=== PATIENT | female | born 1985 | race African-American/Black ===

== ENCOUNTER 2018-11-20 19:24 | Emergency (ER) | payer OTHER ==
[~2018-11-20] VITALS: Ht 175.3 cm; Wt 135.0 kg
[2018-11-20] MEDS ORDERED: HALOPERIDOL LACTATE 5MG/ML VIAL IM STA (22:30)
[2018-11-20] MEDS ORDERED: LORAZEPAM 2MG/ML CPJ IM STA (22:30)
[2018-11-20 23:34] LABS: BASOPHILS % 0.3 % (0.0-2.0); EOSINOPHILS % 0.9 % (0.0-5.0); HEMOGLOBIN. 12.1 g/dL (12.0-16.0); LYMPHOCYTES % 23.6 % (20.0-50.0); MEAN CORPUSCULAR HEMOGLOBIN 27.9 pg (28.0-32.0); MEAN CORPUSCULAR VOLUME 85.3 fL (81.0-99.0); MEAN PLATELET VOLUME 8.4 fl (7.4-10.4); MONOCYTES % 5.6 % (2.0-8.0); NEUTROPHILS % 69.6 % (40.0-76.0); PLATELET 255 x1000/uL (130-400); RED BLOOD CELL COUNT 4.34 mill/uL (4.2-5.4); RED CELL DISTRIBUTION WIDTH 14.3 % (11.6-14.6)
[2018-11-20 23:37] LABS: CHLORIDE 109 mEq/L (98-107)
[2018-11-20 23:41] LABS: ETHANOL BLOOD < 10 mg/dL
[2018-11-21] MEDS ORDERED: POTASSIUM CHLORIDE 20MEQ TABLET SR PO ONE (00:30)
[2018-11-21 06:40] VITALS: BP 100/54
[2018-11-21] MEDS ORDERED: ZIPRASIDONE MESYLATE 20MG/VIAL IM ONE (08:00)
== END 2018-11-21 15:00 | disposition home or self-care (01) ==
LOC: ER 19:24
DX: E87.6 Hypokalemia (principal); R45.851 Suicidal ideations; F41.9 Anxiety disorder, unspecified; F32.9 Major depressive disorder, single episode, unspecified; F12.10 Cannabis abuse, uncomplicated
CPT/HCPCS: 36415; 80053; 80307; 80329; 85025; 87186; 96372; 99284; J1630; J2060; J3486; Z7610

== ENCOUNTER 2019-01-22 10:29 | Emergency (ER) | payer MEDICAID, OTHER ==
[~2019-01-22] VITALS: Ht 170.2 cm; Wt 82.0 kg
[2019-01-22 11:01] VITALS: BP 137/91
[2019-01-22] MEDS ORDERED: LORAZEPAM 1MG TABLET PO ONE (11:30)
[2019-01-22 11:42] LABS: CLARITY URINE TURBID (CLEAR); COLOR URINE DARK YELLOW (YELLOW); KETONES URINE TRACE (NEGATIVE); LEUKOCYTE ESTERASE URINE 3+ (NEGATIVE); NITRITE URINE NEGATIVE (NEGATIVE); OCCULT BLOOD URINE NEGATIVE (NEGATIVE); PROTEIN URINE 1+ (NEGATIVE); SPECIFIC GRAVITY URINE 1.024 (1.005-1.030)
[2019-01-22 11:59] LABS: *COCAINE SCREEN URINE NEGATIVE (NEGATIVE); METHADONE URINE SCREEN NEGATIVE (NEGATIVE); OPIATES URINE SCREEN NEGATIVE (NEGATIVE); PHENCYCLIDINE URINE SCREEN NEGATIVE (NEGATIVE)
[2019-01-22 12:00] LABS: *AMPHETAMINES SCREEN URINE NEGATIVE (NEGATIVE); *BARBITURATES SCREEN URINE NEGATIVE (NEGATIVE); *BENZODIAZEPINES SCREEN URINE NEGATIVE (NEGATIVE)
[2019-01-22 12:07] LABS: BASOPHILS % 0.8 % (0.0-2.0); EOSINOPHILS % 1.1 % (0.0-5.0); HEMATOCRIT. 39.3 % (36.0-48.0); HEMOGLOBIN. 13.2 g/dL (12.0-16.0); LYMPHOCYTES % 18.8 % (20.0-50.0); MEAN CORPUSCULAR HEMOGLOBIN 29.1 pg (28.0-32.0); MEAN CORPUSCULAR VOLUME 86.6 fL (81.0-99.0); MEAN PLATELET VOLUME 8.8 fl (7.4-10.4); MONOCYTES % 6.9 % (2.0-8.0); NEUTROPHILS % 72.4 % (40.0-76.0); PLATELET 234 x1000/uL (130-400); RED BLOOD CELL COUNT 4.53 mill/uL (4.2-5.4); RED CELL DISTRIBUTION WIDTH 15.9 % (11.6-14.6)
[2019-01-22 12:09] LABS: CHLORIDE 107 mEq/L (98-107)
[2019-01-22 12:14] LABS: CANNABINOID URINE SCREEN PRESUMTIVE POSITIVE (NEGATIVE)
[2019-01-22 12:14] LABS: ETHANOL BLOOD < 10 mg/dL; HCG SCREEN NEGATIVE
[2019-01-22] MEDS ORDERED: OLAN5TAB3 PO (13:01)
== END 2019-01-22 12:10 | disposition left against medical advice (07) ==
LOC: ER 10:29
DX: N39.0 Urinary tract infection, site not specified (principal); F41.9 Anxiety disorder, unspecified; F32.9 Major depressive disorder, single episode, unspecified; F12.10 Cannabis abuse, uncomplicated
CPT/HCPCS: 36415; 80305; 80307; 80320; 80329; 81025; 84703; 87077; 87186; 99284; G0480

== ENCOUNTER 2019-01-22 12:34 | Emergency (ER) | payer MEDICAID ==
[~2019-01-22] VITALS: Ht 160 cm; Wt 86.9 kg
[2019-01-22 12:58] VITALS: BP 127/80
[2019-01-22] MEDS ORDERED: OLAN5TAB3 PO (13:01)
== END 2019-01-22 19:04 | disposition left against medical advice (07) ==
LOC: ER 12:34
DX: Z53.21 Procedure and treatment not carried out due to patient leaving prior to being seen by health care provider (principal)

== ENCOUNTER 2019-04-25 03:48 | Emergency (ER) | payer MEDICAID ==
[~2019-04-25] VITALS: Ht 165.1 cm; Wt 75.0 kg
[~2019-04-25 03:48] MED LIST: OLAN5TAB3 PO
[2019-04-25 04:20] VITALS: BP 118/95
== END 2019-04-25 05:05 | disposition home or self-care (01) ==
LOC: ER 03:48
DX: F41.9 Anxiety disorder, unspecified (principal); R45.851 Suicidal ideations
CPT/HCPCS: 99284

== ENCOUNTER 2019-08-24 09:25 | Emergency (ER) | payer MEDICAID ==
[~2019-08-24] VITALS: Ht 167.6 cm; Wt 102.0 kg
[2019-08-24 12:40] LABS: *AMPHETAMINES SCREEN URINE NEGATIVE (NEGATIVE); *COCAINE SCREEN URINE NEGATIVE (NEGATIVE); METHADONE URINE SCREEN NEGATIVE (NEGATIVE)
[2019-08-24 12:42] LABS: *BARBITURATES SCREEN URINE NEGATIVE (NEGATIVE); CANNABINOID URINE SCREEN NEGATIVE (NEGATIVE); OPIATES URINE SCREEN NEGATIVE (NEGATIVE); PHENCYCLIDINE URINE SCREEN NEGATIVE (NEGATIVE)
[2019-08-24 12:43] LABS: *BENZODIAZEPINES SCREEN URINE NEGATIVE (NEGATIVE)
[2019-08-24 15:54] VITALS: BP 130/73
== END 2019-08-24 19:17 | disposition home or self-care (01) ==
LOC: ER 10:06
DX: F22 Delusional disorders (principal); F17.200 Nicotine dependence, unspecified, uncomplicated
CPT/HCPCS: 80305; 81025; 99283; 99406

== ENCOUNTER 2019-08-24 19:07 | Emergency (ER) | payer MEDICAID ==
[~2019-08-24] VITALS: Ht 162.6 cm; Wt 93.0 kg
[2019-08-24 19:28] VITALS: BP 120/77
[2019-08-24] MEDS ORDERED: IBUPROFEN 600MG TABLET PO ONE (23:15)
== END 2019-08-25 00:10 | disposition home or self-care (01) ==
LOC: ER 19:07
DX: R07.89 Other chest pain (principal); F32.9 Major depressive disorder, single episode, unspecified; F41.9 Anxiety disorder, unspecified
CPT/HCPCS: 71045; 93005; 99283

== ENCOUNTER 2019-08-25 06:43 | Emergency (ER) | payer MEDICAID ==
[~2019-08-25] VITALS: Ht 162.6 cm; Wt 95.0 kg
[2019-08-25] MEDS ORDERED: IBUPROFEN 400MG TABLET PO ONE (08:15)
[2019-08-25 08:50] VITALS: BP 101/70
== END 2019-08-25 09:12 | disposition home or self-care (01) ==
LOC: ER 06:52
DX: R07.89 Other chest pain (principal); F41.9 Anxiety disorder, unspecified; F32.9 Major depressive disorder, single episode, unspecified
CPT/HCPCS: 81025; 93005; 99283

== ENCOUNTER 2020-06-21 19:45 | Emergency (ER) | payer MEDICAID ==
[~2020-06-21] VITALS: Ht 165.1 cm; Wt 73.0 kg
[2020-06-21] MEDS ORDERED: LORAZEPAM 2MG/ML CPJ IM STA (20:40)
[2020-06-21] MEDS ORDERED: OLANZAPINE 10 MG/VIAL IM STA (20:40)
[2020-06-21 21:36] LABS: BASOPHILS % 0.6 % (0.0-2.0); EOSINOPHILS % 0.8 % (0.0-5.0); HEMATOCRIT. 34.3 % (36.0-48.0); HEMOGLOBIN. 11.6 g/dL (12.0-16.0); LYMPHOCYTES % 23.1 % (20.0-50.0); MEAN CORPUSCULAR HEMOGLOBIN 28.4 pg (28.0-32.0); MEAN CORPUSCULAR VOLUME 83.8 fL (81.0-99.0); MEAN PLATELET VOLUME 8.1 fl (7.4-10.4); MONOCYTES % 4.4 % (2.0-8.0); NEUTROPHILS % 71.1 % (40.0-76.0); PLATELET 260 x1000/uL (130-400); RED BLOOD CELL COUNT 4.09 mill/uL (4.2-5.4); RED CELL DISTRIBUTION WIDTH 14.6 % (11.6-14.6)
[2020-06-21 21:43] LABS: CHLORIDE 108 mEq/L (98-107)
[2020-06-21 21:47] LABS: ETHANOL BLOOD < 10 mg/dL
[2020-06-21 21:59] LABS: HCG SCREEN NEGATIVE
[2020-06-21] MEDS ORDERED: KCL 20MEQ/100ML PREMIX 100 ML IV ONE (23:30)
[2020-06-21] MEDS ORDERED: POTASSIUM CHLORIDE 20MEQ TABLET SR PO ONE (23:30)
[2020-06-22] MEDS ORDERED: ZIPRASIDONE HCL 20MG CAPSULE PO ONE (01:00)
[2020-06-22] MEDS ORDERED: POTASSIUM CHLORIDE 20MEQ TABLET SR PO NR (01:30)
[2020-06-22] MEDS ORDERED: LORAZEPAM 2MG/ML CPJ IM STA (01:53)
[2020-06-22] MEDS ORDERED: HALOPERIDOL LACTATE 5MG/ML VIAL IM ONE (02:00)
[2020-06-22] MEDS ORDERED: KCL 20MEQ/100ML PREMIX 100 ML IV ONE (02:45)
[2020-06-22 05:45] LABS: CHLORIDE 114 mEq/L (98-107)
[2020-06-22 06:17] LABS: CLARITY URINE CLEAR (CLEAR); COLOR URINE DARK YELLOW (YELLOW); KETONES URINE TRACE (NEGATIVE); LEUKOCYTE ESTERASE URINE NEGATIVE (NEGATIVE); NITRITE URINE NEGATIVE (NEGATIVE); OCCULT BLOOD URINE NEGATIVE (NEGATIVE); PROTEIN URINE NEGATIVE (NEGATIVE); SPECIFIC GRAVITY URINE 1.026 (1.005-1.030)
[2020-06-22 06:26] LABS: *BARBITURATES SCREEN URINE NEGATIVE (NEGATIVE); *COCAINE SCREEN URINE NEGATIVE (NEGATIVE); METHADONE URINE SCREEN NEGATIVE (NEGATIVE); OPIATES URINE SCREEN NEGATIVE (NEGATIVE); PHENCYCLIDINE URINE SCREEN NEGATIVE (NEGATIVE)
[2020-06-22 06:27] LABS: *BENZODIAZEPINES SCREEN URINE NEGATIVE (NEGATIVE)
[2020-06-22 06:30] LABS: *AMPHETAMINES SCREEN URINE PRESUMTIVE POSITIVE (NEGATIVE); CANNABINOID URINE SCREEN PRESUMTIVE POSITIVE (NEGATIVE)
[2020-06-22 14:26] VITALS: BP 138/77
== END 2020-06-22 15:02 | disposition home or self-care (01) ==
LOC: ER 19:45
DX: F23 Brief psychotic disorder (principal); E87.6 Hypokalemia; F41.9 Anxiety disorder, unspecified; Z98.890 Other specified postprocedural states
CPT/HCPCS: 36415; 80048; 80053; 80305; 80307; 80320; 80329; 81003; 83735; 84443; 84703; 85025; 93005; 96365; 96366; 96372; 99285; J1630; J2060; J3480; J3490; G0480

== ENCOUNTER 2020-07-25 18:47 | Emergency (ER) | payer MEDICAID ==
[~2020-07-25] VITALS: Ht 167.6 cm; Wt 118.0 kg
[2020-07-25] MEDS ORDERED: OLANZAPINE 5MG TABLET PO SCH (20:00)
[2020-07-25] MEDS ORDERED: OLANZAPINE 10 MG/VIAL IM ONE (20:00)
[2020-07-25 20:24] VITALS: BP 134/87
== END 2020-07-25 20:24 | disposition home or self-care (01) ==
LOC: ER 18:47
DX: F20.9 Schizophrenia, unspecified (principal); F31.9 Bipolar disorder, unspecified
CPT/HCPCS: 96372; 99283; J3490

== ENCOUNTER 2020-09-12 13:10 | Emergency (ER) | payer MEDICAID ==
[~2020-09-12] VITALS: Ht 167.6 cm; Wt 80.0 kg
[2020-09-12 13:18] VITALS: BP 148/74
[2020-09-12 18:33] LABS: HCG SCREEN NEGATIVE
== END 2020-09-12 19:19 | disposition home or self-care (01) ==
LOC: ER 13:10
DX: R11.0 Nausea (principal); Z32.02 Encounter for pregnancy test, result negative; I10 Essential (primary) hypertension
CPT/HCPCS: 81025; 84703; 99283

== ENCOUNTER 2021-08-20 08:48 | Emergency (ER) | payer MEDICAID ==
[~2021-08-20] VITALS: Ht 170.2 cm; Wt 78.0 kg
[2021-08-20] MEDS ORDERED: ACETAMINOPHEN 325MG TABLET PO ONE (09:30)
[2021-08-20] MEDS ORDERED: ACET-2708 MT (11:18)
[2021-08-20 12:22] VITALS: BP 126/73
== END 2021-08-20 12:22 | disposition home or self-care (01) ==
LOC: ER 08:48
DX: M24.851 Other specific joint derangements of right hip, not elsewhere classified (principal); M23.91 Unspecified internal derangement of right knee; I10 Essential (primary) hypertension; F32.A Depression, unspecified; F17.210 Nicotine dependence, cigarettes, uncomplicated; Y08.89XA Assault by other specified means, initial encounter; Y93.89 Activity, other specified; Y92.018 Other place in single-family (private) house as the place of occurrence of the external cause
CPT/HCPCS: 73502; 73560; 81025; 99284

== ENCOUNTER 2021-10-03 17:11 | Emergency (ER) | payer MEDICAID ==
[~2021-10-03] VITALS: Ht 165.1 cm; Wt 100.0 kg
[~2021-10-03 17:11] MED LIST changes: +ACET-2708 MT
[2021-10-03 17:33] VITALS: BP 127/79
[2021-10-03 20:09] LABS: CLARITY URINE CLEAR (CLEAR); COLOR URINE YELLOW (YELLOW); KETONES URINE NEGATIVE (NEGATIVE); LEUKOCYTE ESTERASE URINE NEGATIVE (NEGATIVE); NITRITE URINE NEGATIVE (NEGATIVE); OCCULT BLOOD URINE NEGATIVE (NEGATIVE); PROTEIN URINE TRACE (NEGATIVE); SPECIFIC GRAVITY URINE 1.037 (1.005-1.030); UROBILINOGEN URINE 0.2 E.U./dL (0.2-1.0)
[2021-10-03 20:46] LABS: BASOPHILS % 0.5 % (0.0-2.0); EOSINOPHILS % 0.9 % (0.0-5.0); HEMATOCRIT. 40.9 % (36.0-48.0); HEMOGLOBIN. 13.2 g/dL (12.0-16.0); MEAN CORPUSCULAR HEMOGLOBIN 28.4 pg (28.0-32.0); MEAN CORPUSCULAR VOLUME 88.3 fL (81.0-99.0); MEAN PLATELET VOLUME 8.3 fl (7.4-10.4); MONOCYTES % 2.9 % (2.0-8.0); NEUTROPHILS % 72.7 % (40.0-76.0); PLATELET 288 x1000/uL (130-400); RED BLOOD CELL COUNT 4.63 mill/uL (4.2-5.4); RED CELL DISTRIBUTION WIDTH 13.9 % (11.6-14.6)
[2021-10-03 20:48] LABS: CHLORIDE 108 mEq/L (98-107)
[2021-10-03 21:10] LABS: B-HCG QUANTITATIVE 12163 mIU/mL (<3)
== END 2021-10-03 21:54 | disposition home or self-care (01) ==
LOC: ER 17:22
DX: O26.891 Other specified pregnancy related conditions, first trimester (principal); R10.84 Generalized abdominal pain; O99.341 Other mental disorders complicating pregnancy, first trimester; O16.1 Unspecified maternal hypertension, first trimester; F31.9 Bipolar disorder, unspecified; Z3A.01 Less than 8 weeks gestation of pregnancy
CPT/HCPCS: 36415; 76801; 80053; 81003; 81025; 84702; 85025; 86850; 86900; 99284

== ENCOUNTER 2021-10-04 02:28 | Emergency (ER) | payer MEDICAID ==
[~2021-10-04] VITALS: Ht 167.6 cm; Wt 82.0 kg
[2021-10-04 02:43] VITALS: BP 147/76
[2021-10-04] MEDS ORDERED: ACETAMINOPHEN 325MG TABLET PO ONE (03:30)
[2021-10-05] MEDS ORDERED: CEPH500C2 MT (03:56)
== END 2021-10-04 03:52 | disposition home or self-care (01) ==
LOC: ER 02:28
DX: R10.9 Unspecified abdominal pain (principal)
CPT/HCPCS: 99282

== ENCOUNTER 2021-10-04 16:13 | Emergency (ER) | payer MEDICAID ==
[~2021-10-04] VITALS: Ht 154.9 cm; Wt 96.8 kg
[2021-10-04 16:25] VITALS: BP 141/119
[2021-10-04 19:48] LABS: BASOPHILS % 0.3 % (0.0-2.0); EOSINOPHILS % 1.4 % (0.0-5.0); HEMATOCRIT. 38.2 % (36.0-48.0); HEMOGLOBIN. 12.3 g/dL (12.0-16.0); LYMPHOCYTES % 22.5 % (20.0-50.0); MEAN CORPUSCULAR HEMOGLOBIN 28.1 pg (28.0-32.0); MEAN CORPUSCULAR VOLUME 87.5 fL (81.0-99.0); MEAN PLATELET VOLUME 8.2 fl (7.4-10.4); MONOCYTES % 4.7 % (2.0-8.0); NEUTROPHILS % 71.1 % (40.0-76.0); PLATELET 310 x1000/uL (130-400); RED BLOOD CELL COUNT 4.36 mill/uL (4.2-5.4); RED CELL DISTRIBUTION WIDTH 13.9 % (11.6-14.6)
[2021-10-04 19:55] LABS: CHLORIDE 107 mEq/L (98-107)
[2021-10-04 20:19] LABS: B-HCG QUANTITATIVE 12462 mIU/mL (<3)
[2021-10-05] MEDS ORDERED: CEPH500C2 MT (03:56)
== END 2021-10-04 21:14 | disposition home or self-care (01) ==
LOC: ER 16:13
DX: O26.891 Other specified pregnancy related conditions, first trimester (principal); F41.9 Anxiety disorder, unspecified; Z3A.01 Less than 8 weeks gestation of pregnancy
CPT/HCPCS: 36415; 80053; 84702; 85025; 86850; 86900; 93005; 99284

== ENCOUNTER 2021-10-05 01:05 | Emergency (ER) | payer MEDICAID ==
[~2021-10-05] VITALS: Ht 162.6 cm; Wt 96.8 kg
[2021-10-05 02:07] LABS: CLARITY URINE CLEAR (CLEAR); COLOR URINE YELLOW (YELLOW); KETONES URINE TRACE (NEGATIVE); LEUKOCYTE ESTERASE URINE TRACE (NEGATIVE); NITRITE URINE NEGATIVE (NEGATIVE); OCCULT BLOOD URINE NEGATIVE (NEGATIVE); PH URINE 5.5 (4.5-8.0); PROTEIN URINE NEGATIVE (NEGATIVE); SPECIFIC GRAVITY URINE 1.038 (1.005-1.030)
[2021-10-05 02:16] LABS: *AMPHETAMINES SCREEN URINE NEGATIVE (NEGATIVE); *BARBITURATES SCREEN URINE NEGATIVE (NEGATIVE); *BENZODIAZEPINES SCREEN URINE NEGATIVE (NEGATIVE); *COCAINE SCREEN URINE NEGATIVE (NEGATIVE); METHADONE URINE SCREEN NEGATIVE (NEGATIVE); OPIATES URINE SCREEN NEGATIVE (NEGATIVE); PHENCYCLIDINE URINE SCREEN NEGATIVE (NEGATIVE)
[2021-10-05 02:17] LABS: CANNABINOID URINE SCREEN NEGATIVE (NEGATIVE)
[2021-10-05] MEDS ORDERED: CEPH500C2 MT (03:56)
[2021-10-05 04:47] VITALS: BP 102/61
== END 2021-10-05 04:49 | disposition home or self-care (01) ==
LOC: ER 01:26
DX: O23.41 Unspecified infection of urinary tract in pregnancy, first trimester (principal); N39.0 Urinary tract infection, site not specified; O09.521 Supervision of elderly multigravida, first trimester; Z3A.01 Less than 8 weeks gestation of pregnancy
CPT/HCPCS: 80305; 81003; 81025; 99283

== ENCOUNTER 2021-11-24 04:10 | Emergency (ER) | payer MEDICAID ==
[~2021-11-24] VITALS: Ht 167.6 cm; Wt 114.0 kg
[~2021-11-24 04:10] MED LIST changes: +AMOX-424 MT; +CEPH500C2 MT; +HYDR-4001 MT
[2021-11-24 06:20] LABS: BASOPHILS % 0.4 % (0.0-2.0); EOSINOPHILS % 1.3 % (0.0-5.0); HEMATOCRIT. 34.3 % (36.0-48.0); HEMOGLOBIN. 11.5 g/dL (12.0-16.0); LYMPHOCYTES % 23.6 % (20.0-50.0); MEAN CORPUSCULAR VOLUME 86.1 fL (81.0-99.0); MEAN PLATELET VOLUME 8.4 fl (7.4-10.4); MONOCYTES % 4.6 % (2.0-8.0); NEUTROPHILS % 70.1 % (40.0-76.0); PLATELET 267 x1000/uL (130-400); RED BLOOD CELL COUNT 3.99 mill/uL (4.2-5.4); RED CELL DISTRIBUTION WIDTH 13.9 % (11.6-14.6)
[2021-11-24 06:37] LABS: CHLORIDE 111 mEq/L (98-107)
[2021-11-24 06:42] LABS: ETHANOL BLOOD < 10 mg/dL
[2021-11-24 14:45] VITALS: BP 110/70
== END 2021-11-24 15:29 | disposition home or self-care (01) ==
LOC: ER 05:00
DX: T74.21XA Adult sexual abuse, confirmed, initial encounter (principal); F31.9 Bipolar disorder, unspecified; F20.9 Schizophrenia, unspecified; I10 Essential (primary) hypertension; Z98.890 Other specified postprocedural states
CPT/HCPCS: 36415; 80053; 80307; 80320; 80329; 85025; 99285; G0480

== ENCOUNTER 2021-11-28 08:20 | Emergency (ER) | payer MEDICAID ==
[~2021-11-28] VITALS: Ht 167.6 cm; Wt 90.7 kg
[2021-11-28 08:23] VITALS: BP 126/80
[2021-11-28] MEDS ORDERED: BACITRACIN ZINC OINT UDPKT TOP ONE (08:45)
[2021-11-28] MEDS ORDERED: TETANUS, DIPHTHERIA, PERTUSSIS VAC/PF 0.5ML (>10YR OLD) IM ONE (08:45)
[2021-11-28] MEDS ORDERED: KETOROLAC 60MG/2ML VIAL IM ONE (08:45)
== END 2021-11-28 08:45 | disposition left against medical advice (07) ==
LOC: ER 08:20
DX: S40.212A Abrasion of left shoulder, initial encounter (principal); S20.412A Abrasion of left back wall of thorax, initial encounter; M54.2 Cervicalgia; F32.A Depression, unspecified; F20.9 Schizophrenia, unspecified; I10 Essential (primary) hypertension; Z98.890 Other specified postprocedural states; Y04.0XXA Assault by unarmed brawl or fight, initial encounter; Y93.89 Activity, other specified; Y92.018 Other place in single-family (private) house as the place of occurrence of the external cause
CPT/HCPCS: 99283

== ENCOUNTER 2022-03-31 14:12 | Emergency (ER) | payer MEDICAID ==
[~2022-03-31] VITALS: Ht 172.7 cm; Wt 90.9 kg
[2022-03-31 14:16] VITALS: BP 109/78
== END 2022-03-31 17:30 | disposition home or self-care (01) ==
LOC: ER 14:12
DX: R10.9 Unspecified abdominal pain (principal); I10 Essential (primary) hypertension; Z86.59 Personal history of other mental and behavioral disorders; Z98.890 Other specified postprocedural states
CPT/HCPCS: 99283

== ENCOUNTER 2022-06-05 14:58 | Emergency (ER) | payer MEDICAID ==
[~2022-06-05] VITALS: Ht 167.6 cm; Wt 90.0 kg
[2022-06-05 18:26] LABS: BASOPHILS % 0.4 % (0.0-2.0); EOSINOPHILS % 0.4 % (0.0-5.0); HEMATOCRIT. 38.9 % (36.0-48.0); HEMOGLOBIN. 12.7 g/dL (12.0-16.0); LYMPHOCYTES % 17.4 % (20.0-50.0); MEAN CORPUSCULAR HEMOGLOBIN 28.7 pg (28.0-32.0); MEAN CORPUSCULAR VOLUME 87.8 fL (81.0-99.0); MEAN PLATELET VOLUME 8.5 fl (7.4-10.4); MONOCYTES % 2.6 % (2.0-8.0); NEUTROPHILS % 79.2 % (40.0-76.0); PLATELET 256 x1000/uL (130-400); RED BLOOD CELL COUNT 4.43 mill/uL (4.2-5.4); RED CELL DISTRIBUTION WIDTH 14.7 % (11.6-14.6)
[2022-06-05 18:38] LABS: CLARITY URINE CLEAR (CLEAR); COLOR URINE YELLOW (YELLOW); KETONES URINE TRACE (NEGATIVE); LEUKOCYTE ESTERASE URINE TRACE (NEGATIVE); NITRITE URINE NEGATIVE (NEGATIVE); OCCULT BLOOD URINE NEGATIVE (NEGATIVE); PROTEIN URINE TRACE (NEGATIVE); SPECIFIC GRAVITY URINE 1.028 (1.005-1.030)
[2022-06-05 18:41] LABS: CHLORIDE 108 mEq/L (98-107)
[2022-06-05 18:42] LABS: HCG SCREEN NEGATIVE
[2022-06-05 18:47] LABS: ETHANOL BLOOD < 10 mg/dL
[2022-06-05] MEDS ORDERED: POTASSIUM CHLORIDE 20MEQ TABLET SR PO ONE (19:15)
[2022-06-05 20:19] LABS: *AMPHETAMINES SCREEN URINE NEGATIVE (NEGATIVE); *BARBITURATES SCREEN URINE NEGATIVE (NEGATIVE); *BENZODIAZEPINES SCREEN URINE NEGATIVE (NEGATIVE); *COCAINE SCREEN URINE NEGATIVE (NEGATIVE); METHADONE URINE SCREEN NEGATIVE (NEGATIVE); OPIATES URINE SCREEN NEGATIVE (NEGATIVE); PHENCYCLIDINE URINE SCREEN NEGATIVE (NEGATIVE)
[2022-06-05 20:20] LABS: CANNABINOID URINE SCREEN PRESUMTIVE POSITIVE (NEGATIVE)
[2022-06-06] MEDS ORDERED: OLANZAPINE 5MG TABLET PO SCH (13:00)
[2022-06-06 13:31] VITALS: BP 130/78
== END 2022-06-06 16:26 ==
LOC: ER 14:58
DX: R51.9 Headache, unspecified (principal); R45.851 Suicidal ideations; R45.850 Homicidal ideations; Y08.89XA Assault by other specified means, initial encounter; Y93.89 Activity, other specified; Y92.89 Other specified places as the place of occurrence of the external cause; Y99.8 Other external cause status; F31.9 Bipolar disorder, unspecified; I10 Essential (primary) hypertension; F20.9 Schizophrenia, unspecified; Z98.890 Other specified postprocedural states; Z79.899 Other long term (current) drug therapy; Z20.822 Contact with and (suspected) exposure to COVID-19
CPT/HCPCS: 36415; 70450; 80053; 80305; 80307; 80320; 80329; 81003; 81025; 84703; 85025; 99285; C9803; U0003; U0005; G0480

== ENCOUNTER 2022-06-16 16:44 | Emergency (ER) | payer MEDICAID ==
[~2022-06-16] VITALS: Ht 165.1 cm; Wt 87.0 kg
[2022-06-16 18:44] LABS: BASOPHILS % 0.3 % (0.0-2.0); HEMATOCRIT. 37.6 % (36.0-48.0); HEMOGLOBIN. 12.2 g/dL (12.0-16.0); LYMPHOCYTES % 17.3 % (20.0-50.0); MEAN CORPUSCULAR HEMOGLOBIN 28.3 pg (28.0-32.0); MEAN CORPUSCULAR VOLUME 87.2 fL (81.0-99.0); MEAN PLATELET VOLUME 8.4 fl (7.4-10.4); MONOCYTES % 4.2 % (2.0-8.0); NEUTROPHILS % 77.2 % (40.0-76.0); PLATELET 271 x1000/uL (130-400); RED BLOOD CELL COUNT 4.31 mill/uL (4.2-5.4); RED CELL DISTRIBUTION WIDTH 14.7 % (11.6-14.6)
[2022-06-16 18:45] LABS: CHLORIDE 105 mEq/L (98-107)
[2022-06-16 18:56] LABS: ETHANOL BLOOD < 10 mg/dL
[2022-06-16] MEDS ORDERED: ACETAMINOPHEN 325MG TABLET PO ONE (19:30)
[2022-06-16 19:45] LABS: CLARITY URINE CLEAR (CLEAR); COLOR URINE YELLOW (YELLOW); KETONES URINE 2+ (NEGATIVE); LEUKOCYTE ESTERASE URINE NEGATIVE (NEGATIVE); NITRITE URINE NEGATIVE (NEGATIVE); OCCULT BLOOD URINE NEGATIVE (NEGATIVE); PROTEIN URINE NEGATIVE (NEGATIVE); SPECIFIC GRAVITY URINE 1.029 (1.005-1.030)
[2022-06-16 20:04] LABS: *AMPHETAMINES SCREEN URINE NEGATIVE (NEGATIVE); *BARBITURATES SCREEN URINE NEGATIVE (NEGATIVE); *BENZODIAZEPINES SCREEN URINE NEGATIVE (NEGATIVE); *COCAINE SCREEN URINE NEGATIVE (NEGATIVE); CANNABINOID URINE SCREEN NEGATIVE (NEGATIVE); METHADONE URINE SCREEN NEGATIVE (NEGATIVE); OPIATES URINE SCREEN NEGATIVE (NEGATIVE); PHENCYCLIDINE URINE SCREEN NEGATIVE (NEGATIVE)
[2022-06-17] MEDS ORDERED: OLANZAPINE 10MG TABLET PO SCH (21:00)
[2022-06-17] MEDS: DIVALPROEX SODIUM 500MG DR TABLET PO SCH (21:55)
[2022-06-18 08:30] VITALS: BP 119/63
[2022-06-18] MEDS: DIVALPROEX SODIUM 500MG DR TABLET PO SCH (10:15)
== END 2022-06-18 11:18 | disposition home or self-care (01) ==
LOC: ER 16:44
DX: R45.851 Suicidal ideations (principal); I10 Essential (primary) hypertension; Z20.822 Contact with and (suspected) exposure to COVID-19; Z98.890 Other specified postprocedural states; Z86.59 Personal history of other mental and behavioral disorders
CPT/HCPCS: 36415; 71045; 80053; 80305; 80307; 80320; 80329; 81003; 83605; 84443; 85025; 87426; 99285; C9803; G0480

== ENCOUNTER 2022-06-18 15:28 | Emergency (ER) | payer MEDICAID ==
[~2022-06-18] VITALS: Ht 170.2 cm; Wt 91.0 kg
[2022-06-18 16:05] VITALS: BP 137/90
[2022-06-18 17:11] LABS: BASOPHILS % 0.1 % (0.0-2.0); EOSINOPHILS % 0.9 % (0.0-5.0); HEMATOCRIT. 36.9 % (36.0-48.0); HEMOGLOBIN. 11.9 g/dL (12.0-16.0); LYMPHOCYTES % 17.5 % (20.0-50.0); MEAN CORPUSCULAR HEMOGLOBIN 28.1 pg (28.0-32.0); MEAN CORPUSCULAR VOLUME 87.2 fL (81.0-99.0); MEAN PLATELET VOLUME 8.4 fl (7.4-10.4); MONOCYTES % 3.7 % (2.0-8.0); NEUTROPHILS % 77.8 % (40.0-76.0); PLATELET 283 x1000/uL (130-400); RED BLOOD CELL COUNT 4.23 mill/uL (4.2-5.4); RED CELL DISTRIBUTION WIDTH 14.9 % (11.6-14.6)
[2022-06-18 17:18] LABS: HCG SCREEN NEGATIVE
[2022-06-18 17:19] LABS: CHLORIDE 110 mEq/L (98-107)
[2022-06-18 17:27] LABS: ETHANOL BLOOD < 10 mg/dL
== END 2022-06-18 23:00 | disposition left against medical advice (07) ==
LOC: ER 15:28
DX: Z53.21 Procedure and treatment not carried out due to patient leaving prior to being seen by health care provider (principal)
CPT/HCPCS: 36415; 80053; 80307; 80320; 80329; 84703; 85025; 99283; G0480